=== PATIENT | male | born 1955 | race Caucasian/White ===

== ENCOUNTER 2017-07-26 14:05 | Emergency (ER) | payer BC ==
[2017-07-26 14:24] VITALS: BP 134/80
--- NOTE | 2017-07-26 15:11 | UC ---
Ear Complaint HPI - History of Current Complaint Chief Complaint: UCEar Stated Complaint: EAR PAIN Time Seen by Provider: 07/26/17 14:27 Hx Obtained From: Patient Onset/Duration: Sudden Onset, Lasting Hours Severity Initially: Mild Severity Currently: Moderate - Allergies/Home Medications Allergies/Adverse Reactions: Allergies Allergy/AdvReac Type Severity Reaction Status Date / Time No Known Allergies Allergy Verified 07/26/17 14:24 Home Medications: Home Medications Losartan/HCTZ 100/25 (NF) [Hyzaar 100/25 (NF)] 1 tab PO DAILY 07/26/17 [History Confirmed 07/26/17] PMH/Surg Hx/FS Hx/Imm Hx Previously Healthy: Yes - Surgical History Surgical History: Yes Surgery Procedure, Year, and Place: BARIATRIC SURGERY 2009- [facility] – [place]. STENT PLACEMENT, KIDNEY STONE 05/2010- [facility] [place]. LOW BACK PARTIAL LAMINECTOMY- [facility] MANY YEARS AGO. STENT PLACEMENT RIGHT URETERAL STENT-11/06/15. [place] [facility] [place] - Family History Known Family History: Negative: Respiratory Disease - Social History Occupation: Retired Lives: With Family Alcohol Use: Daily Alcohol Amount: "couple glasses of wine at night" Substance Use Type: None Smoking Status (MU): Former Smoker Type: Cigarettes Amount Used/How Often: LESS THAN HALF A PACK A WEEK Length of Time of Smoking/Using Tobacco: 6 YEARS Have You Smoked in the Last Year: No When Did the Patient Quit Smoking/Using Tobacco: 25 years ago - Immunization History Most Recent Influenza Vaccination: 07/2017 Most Recent Tetanus Shot: unknown Most Recent Pneumonia Vaccination: n/a Review of Systems Constitutional: Negative Skin: Negative Eyes: Negative ENT: Ear Ache Respiratory: Negative Cardiovascular: Negative Gastrointestinal: Negative Genitourinary: Negative Motor: Negative Neurovascular: Negative Musculoskeletal: Negative Neurological: Negative Psychological: Negative Is Patient Immunocompromised?: No All Other Systems Reviewed And Are Negative: Yes Physical Exam Triage Information Reviewed: Yes Appearance: Well-Appearing, No Pain Distress, Well-Nourished Vital Signs: Initial Vital Signs Temp 97.8 F 07/26/17 14:18 Pulse 71 07/26/17 14:18 Resp 16 07/26/17 14:18 BP 134/80 07/26/17 14:18 Pulse Ox 99 07/26/17 14:18 Vital Signs Reviewed: Yes Eye Exam: Normal ENT: Positive: TM bulging - RIGHT, TM dull, Other: - RIGHT EDEMA EAC Dental Exam: Normal Neck: Positive: Enlarged Nodes @ - RIGHT ANTERIOR CERVICAL LN Respiratory Exam: Normal Respiratory: Positive: Chest non-tender, Lungs clear, Normal breath sounds, No respiratory distress, No accessory muscle use Cardiovascular Exam: Normal Cardiovascular: Positive: RRR, No Murmur, Pulses Normal Abdominal Exam: Normal Musculoskeletal Exam: Normal Neurological Exam: Normal Psychological Exam: Normal Skin Exam: Normal Ear Complaint Course/Dx - Differential Dx/Diagnosis Differential Diagnosis/HQI/PQRI: Otitis Externa, Otitis Media, URI Provider Diagnoses: RIGHT SEROUS OTITIS MEDIA/OTITIS EXTERNA Discharge - Discharge Plan Condition: Stable Disposition: HOME Prescriptions: Amoxicillin/Clavulanate TAB* [Augmentin TAB 875*] 875 mg PO BID #20 tab Ciproflox/Dexameth OTIC.SUSP* [Ciprodex OTIC.SUSP*] 1 drop .SEE ORDER TID #1 btl Patient Education Materials: Otitis Externa (ED), Serous Otitis Media (ED) Referrals: Jerman Melchor DO [Primary Care Provider] -
== END 2017-07-26 15:06 | disposition home or self-care (01) ==
LOC: UCCORT 14:05
DX: H60.8X1 Other otitis externa, right ear (principal); H65.91 Unspecified nonsuppurative otitis media, right ear
CPT/HCPCS: 99212; G0463

== ENCOUNTER 2018-12-14 08:44 | Emergency (ER) | payer BC ==
[2018-12-14 09:04] VITALS: BP 142/77
--- NOTE | 2018-12-14 09:36 | UC ---
Respiratory Complaint HPI - HPI Summary HPI Summary: 62 yo male with sinus congestion and post nasal drup x 2 weeks upper teeth and gums sore no f/c no CP or sob no myalgias has fatigue right ear plugged - History of Current Complaint Chief Complaint: UCRespiratory Stated Complaint: SINUS/CHEST CONGESTION,COUGH Time Seen by Provider: 12/14/18 09:25 Hx Obtained From: Patient Onset/Duration: Gradual Onset, Lasting Weeks Timing: Constant Severity Initially: Mild Severity Currently: Moderate Pain Intensity: 2 Pain Scale Used: 0-10 Numeric Character: Cough: Nonproductive Alleviating Factors: Nothing Associated Signs And Symptoms: Positive: URI, Nasal Congestion, Sinus Discomfort - Allergies/Home Medications Allergies/Adverse Reactions: Allergies Allergy/AdvReac Type Severity Reaction Status Date / Time No Known Allergies Allergy Verified 12/14/18 09:04 PMH/Surg Hx/FS Hx/Imm Hx Previously Healthy: Yes Cardiovascular History: Hypertension GI/ History: Other Other GI/ History: BPH - Surgical History Surgical History: Yes Surgery Procedure, Year, and Place: BARIATRIC SURGERY 2009- [facility] – [place]. STENT PLACEMENT, KIDNEY STONE 05/2010- [facility] [place]. LOW BACK PARTIAL LAMINECTOMY- [facility] MANY YEARS AGO. STENT PLACEMENT RIGHT URETERAL STENT-11/06/15. lithotripsy- right- [facility] [place]-11/2015 - Family History Known Family History: Negative: Respiratory Disease - Social History Alcohol Use: Rare Alcohol Amount: "couple glasses of wine at night" Substance Use Type: None Smoking Status (MU): Former Smoker Type: Cigarettes Amount Used/How Often: LESS THAN HALF A PACK A WEEK Length of Time of Smoking/Using Tobacco: 6 YEARS Have You Smoked in the Last Year: No When Did the Patient Quit Smoking/Using Tobacco: 25 years ago - Immunization History Most Recent Influenza Vaccination: 07/2017 Most Recent Tetanus Shot: unknown Most Recent Pneumonia Vaccination: n/a Review of Systems All Other Systems Reviewed And Are Negative: Yes Constitutional: Positive: Fatigue Skin: Positive: Negative Eyes: Positive: Negative ENT: Positive: Nasal Discharge, Sinus Congestion, Sinus Pain/Tenderness, Other - right ear plugged Respiratory: Positive: Cough Cardiovascular: Positive: Negative Gastrointestinal: Positive: Negative Genitourinary: Positive: Negative Motor: Positive: Negative Neurovascular: Positive: Negative Musculoskeletal: Positive: Negative Neurological: Positive: Negative Psychological: Positive: Negative Physical Exam Triage Information Reviewed: Yes Appearance: Well-Appearing, No Pain Distress, Well-Nourished Vital Signs: Initial Vital Signs Temp 97.8 F 12/14/18 09:00 Pulse 65 12/14/18 09:00 Resp 15 12/14/18 09:00 BP 142/77 12/14/18 09:00 Pulse Ox 100 12/14/18 09:00 Eye Exam: Normal Eyes: Positive: Conjunctiva Clear ENT: Positive: Nasal congestion, Nasal drainage, TMs normal - cerumen impaction right- TM after flush normal, Sinus tenderness, Uvula midline. Negative: Tonsillar swelling, Tonsillar exudate, Muffled voice, Hoarse voice, Dental tenderness Neck: Positive: Supple, Nontender, No Lymphadenopathy Respiratory: Positive: No respiratory distress, No accessory muscle use, Rhonchi Cardiovascular: Positive: RRR, No Murmur Musculoskeletal: Positive: ROM Intact, No Edema Neurological: Positive: Alert Psychological Exam: Normal Skin Exam: Normal Respiratory Course/Dx - Differential Dx/Diagnosis Provider Diagnosis: Acute sinusitis, Impacted cerumen, right ear, Bronchitis Discharge - Sign-Out/Discharge Documenting (check all that apply): Patient Departure All imaging exams completed and their final reports reviewed: No Studies - Discharge Plan Condition: Stable Disposition: HOME Patient Education Materials: Sinusitis (ED) Referrals: Francesco Arzate MD [Primary Care Provider] - 5 Days (if not improved) - Billing Disposition and Condition Condition: STABLE Disposition: Home
== END 2018-12-14 09:57 | disposition home or self-care (01) ==
LOC: UCCORT 08:44
DX: J01.90 Acute sinusitis, unspecified (principal); H61.21 Impacted cerumen, right ear; J40 Bronchitis, not specified as acute or chronic; I10 Essential (primary) hypertension; Z87.891 Personal history of nicotine dependence
CPT/HCPCS: 99213; G0463

== ENCOUNTER 2019-05-10 13:47 | Emergency (ER) | payer BC ==
[2019-05-10 13:55] VITALS: BP 147/81
--- NOTE | 2019-05-10 15:12 | UC ---
Hand/Wrist HPI - HPI Summary HPI Summary: 63 year old male presents after shutting right ring finger in house door yesterday, nail detached from nail bed, but remained intact distally. Up to date on tetanus, denies fever, chills, full movement of finger, sensation intact , minimal swelling. no bleeding. - History Of Current Complaint Chief Complaint: UCUpperExtremity Stated Complaint: FINGER INJURY Time Seen by Provider: 05/10/19 14:22 Hx Obtained From: Patient ?: No Onset/Duration: Sudden Onset Severity Initially: Moderate Severity Currently: Moderate Pain Intensity: 4 Pain Scale Used: 0-10 Numeric Character Of Pain: Aching, Throbbing Alleviating Factor(s): Rest Associated Signs And Symptoms: Positive: Swelling, Redness, Bruising. Negative : Fever, Weakness, Numbness/Tingling - Allergies/Home Medications Allergies/Adverse Reactions: Allergies Allergy/AdvReac Type Severity Reaction Status Date / Time No Known Allergies Allergy Verified 05/10/19 13:55 PMH/Surg Hx/FS Hx/Imm Hx Previously Healthy: Yes - Surgical History Surgical History: Unable to Obtain/Confirm Surgery Procedure, Year, and Place: BARIATR[place] [facility] [place], [place]ID[place] STONE 05/2010[place] [facility] [place] PARTIAL LAMINECTOMY- [facility] MANY YEARS AGO. STENT PLACEMENT RIGHT URETERAL STENT-11/06/15. [place]- [facility] [facility] [place] - Family History Known Family History: Positive: Non-Contributory Negative: Respiratory Disease - Social History Alcohol Use: Occasionally Alcohol Amount: "couple glasses of wine at night" Substance Use Type: None Smoking Status (MU): Former Smoker Type: Cigarettes Amount Used/How Often: LESS THAN HALF A PACK A WEEK Length of Time of Smoking/Using Tobacco: 6 YEARS Have You Smoked in the Last Year: No When Did the Patient Quit Smoking/Using Tobacco: 25 years ago - Immunization History Most Recent Influenza Vaccination: 07/2017 Most Recent Tetanus Shot: unknown Most Recent Pneumonia Vaccination: n/a Review of Systems All Other Systems Reviewed And Are Negative: Yes Constitutional: Positive: Negative Musculoskeletal: Positive: Arthralgia, Decreased ROM, Myalgia Is Patient Immunocompromised?: No Physical Exam Triage Information Reviewed: Yes Appearance: Well-Appearing, No Pain Distress, Well-Nourished Vital Signs: Initial Vital Signs Temp 98.8 F 05/10/19 13:52 Pulse 83 05/10/19 13:52 Resp 18 05/10/19 13:52 BP 147/81 05/10/19 13:52 Pulse Ox 100 05/10/19 13:52 Vital Signs Reviewed: Yes Eyes: Positive: Conjunctiva Clear ENT: Positive: Hearing grossly normal Neurological Exam: Normal Neurological: Positive: Other: - SITLT DIP, full strength of all fingers, mild decrease in movement of right ring finger due to edema, mild edema of DIP. Radiograph- possible chip fracture seen. Psychological Exam: Normal Skin: Positive: Other - nail avulsion from nailbed, nail reapproximated into naibed without difficulty after irrigation, steri strips used to hold pressure in place with light compression dressing over top. Hand/Wrist Course/Dx - Course Course Of Treatment: Radiograph- possible chip fracture vs soft tissue calcification Nail avulsion proximally: - Keep dressing on for next 24 hours - Steri-strips may remove, dress with yellow gauze/ xeroform gauze over nailbed and dressing overtop with splint x 7 days, then may use vasieline gauze over area. Keep covered. - If nail detaches from nailbed, return for placement or follow up with orthopedics or primary physician - Tetanus up to date. - Augmentin twice daily x 7 days for infection prevention - Differential Dx/Diagnosis Differential Diagnosis/HQI/PQRI: Cellulitis, Infection, Tendonitis, Tenosynovitis Provider Diagnosis: Nail avulsion, finger Discharge - Sign-Out/Discharge Documenting (check all that apply): Patient Departure All imaging exams completed and their final reports reviewed: Yes - Discharge Plan Condition: Good Disposition: HOME Prescriptions: Amoxicillin/Clavulanate TAB* [Augmentin TAB 875*] 875 mg PO BID #14 tab Patient Education Materials: Nail Avulsion (ED) Referrals: Delvin Magallon MD [Medical Doctor] - (within 1 week ) Francesco Arzate MD [Primary Care Provider] - Additional Instructions: - Keep dressing on for next 24 hours - Steri-strips may remove, dress with yellow gauze/ xeroform gauze over nailbed and dressing overtop with splint x 7 days, then may use vasieline gauze over area. Keep covered. - If nail detaches from nailbed, return for placement or follow up with orthopedics or primary physician - Tetanus up to date. - Augmentin twice daily x 7 days for infection prevention - Billing Disposition and Condition Condition: GOOD Disposition: Home
== END 2019-05-10 15:25 | disposition home or self-care (01) ==
LOC: UCEAST 13:47
DX: S61.214A Laceration without foreign body of right ring finger without damage to nail, initial encounter (principal); V48.4XXA Person boarding or alighting a car injured in noncollision transport accident, initial encounter; Y92.9 Unspecified place or not applicable; Z87.891 Personal history of nicotine dependence
CPT/HCPCS: 73140; 99202; G0463